=== PATIENT | female | born 1990 | race African-American/Black ===

== ENCOUNTER 2018-05-24 11:06 | Emergency (ER) | payer MEDICAID, SELFPAY | END 2018-05-24 12:34 | disposition home or self-care (01) | LOC: ERS 11:06 | DX: L01.00 Impetigo, unspecified (principal); F17.210 Nicotine dependence, cigarettes, uncomplicated | CPT/HCPCS: 99282 ==

== ENCOUNTER 2019-08-01 09:30 | Emergency (ER) | payer BC, MEDICAID ==
[2019-08-01] MEDS ORDERED: Proparacaine 0.5% Opth 15 ML BOT ONE (10:02)
[2019-08-01] MEDS ORDERED: Fluorescein Opthalmic Strip ONE ×2 (10:02)
== END 2019-08-01 10:39 | disposition home or self-care (01) ==
LOC: ERS 09:30
DX: H18.823 Corneal disorder due to contact lens, bilateral (principal); F17.210 Nicotine dependence, cigarettes, uncomplicated
CPT/HCPCS: 99283